=== PATIENT | male | born 1965 | race African-American/Black ===

== ENCOUNTER 2018-12-27 23:29 | Inpatient (IN) ==
[2018-12-27] MEDS ORDERED: MORPHINE 4 MG/1 ML VIAL IV STA (23:31)
[2018-12-27] MEDS ORDERED: ONDANSETRON 4 MG/2 ML VIAL IV STA (23:31)
[2018-12-27] MEDS ORDERED: LACTATED RINGERS 1,000 ML IV STA (23:31)
[2018-12-27] MEDS ORDERED: DIPH/TET/ACEL PERT BOOSTER VACCINE 0.5 ML VIAL IM ONE (23:31)
[2018-12-27 23:44] LABS: Basophils # 0.1 10*3/uL (0.0-0.2); Basophils % 0.6 % (0.0-0.8); Eosinophils # 0.1 10*3/uL (0.0-0.87); Eosinophils % 0.9 % (0.00-10.9); Hematocrit 50.5 VOL% (42.0-52.0); Hemoglobin 16.5 GM/DL (14.0-18.0); Immature Granulocytes % 0.7 %; Immature Granulocytes Absolute 0.11 #; Lymphocytes # 4.6 10*3/uL (1.4-4.0); Mean Corpuscular HGB Conc 32.7 GM/DL (32-36); Mean Corpuscular Volume 94.2 FL (87-102); Mean Platelet Volume 12.4 FL (9.6-12.0); Neutrophils % 58.8 % (38.7-73.9); Platelet Count 149 T/CUMM (130-400); Red Blood Count 5.36 MC/CUMM (3.8-5.5); Red Cell Distribution Width 11.9 % (9.3-17.3); White Blood Count 14.8 T/CUMM (4-12)
[2018-12-28 00:13] LABS: Alanine Aminotransferase 44 U/L (16-61); Albumin 3.8 G/DL (3.4-5.0); Alkaline Phosphatase 123 U/L (45-117); Amylase 58 U/L (25-115); Aspartate Amino Transferase 40 U/L (0-37); Blood Urea Nitrogen 12 MG/DL (7-18); Calcium 8.9 MG/DL (8.5-10.1); Glucose 177 MG/DL (74-106); Osmolality,Calculated 278.7 MOS/KG (273-304); Total Protein 7.7 G/DL (6.4-8.3)
[2018-12-28 04:09] LABS: Apearance,Urine CLEAR (Clear); Bilirubin,Urine Negative (Negative); Blood, Urine Negative (Negative); Glucose,Urine (UA) Negative (Negative); Ketones,Urine 5 mg/dL (Negative); Nitrite,Urine Negative (Negative); Protein,Urine Negative; RBC,Urine 3 /HPF (0-4); Urine Color Yellow (Yellow); Urine Specific Gravity 1.048 (1.001-1.035)
[2018-12-28 04:16] LABS: Barbiturates Screen,Urine Negative (Negative); Benzodiazepines Screen,Urine Negative (Negative); Cannabinoid Screen,Urine Negative (Negative); Opiate Screen,Urine Positive (Negative); Phencyclidine Screen,Urine Negative (Negative)
[2018-12-28] MEDS ORDERED: ONDANSETRON 4 MG/2 ML VIAL IV PRN (04:53)
[2018-12-28] MEDS ORDERED: ACETAMINOPHEN 325 MG TABLET PO PRN (04:53)
[2018-12-28] MEDS: SODIUM CHLORIDE 0.9% 1,000 ML IV SCH ×2 (05:23→18:32)
[2018-12-28] MEDS: HYDROmorphone 2 MG/1 ML VIAL IV PRN ×3 (05:23→16:29)
[2018-12-28] MEDS: PANTOPRAZOLE 40 MG TABLET PO SCH (07:50)
[2018-12-28] MEDS ORDERED: ALBUTEROL/IPRATROPIUM 3 ML NEB RESP TX PRN (09:05)
[2018-12-28] MEDS: ALBUTEROL/IPRATROPIUM 3 ML NEB RESP TX SCH ×2 (14:12→19:40)
[2018-12-29] MEDS: ALBUTEROL/IPRATROPIUM 3 ML NEB RESP TX SCH ×2 (00:42→06:48)
[2018-12-29 04:56] LABS: Basophils # 0.1 10*3/uL (0.0-0.2); Basophils % 0.5 % (0.0-0.8); Eosinophils # 0.1 10*3/uL (0.0-0.87); Eosinophils % 1.3 % (0.00-10.9); Hematocrit 46.9 VOL% (42.0-52.0); Hemoglobin 14.7 GM/DL (14.0-18.0); Immature Granulocytes % 0.4 %; Immature Granulocytes Absolute 0.04 #; Lymphocytes # 3.1 10*3/uL (1.4-4.0); Lymphocytes % 28.1 % (21.2-54.2); Mean Corpuscular HGB Conc 31.3 GM/DL (32-36); Mean Corpuscular Volume 97.5 FL (87-102); Mean Platelet Volume 12.2 FL (9.6-12.0); Monocytes % 8.3 % (1.7-12.7); Neutrophils % 61.4 % (38.7-73.9); Platelet Count 118 T/CUMM (130-400); Red Blood Count 4.81 MC/CUMM (3.8-5.5)
[2018-12-29 05:23] LABS: Albumin 3.3 G/DL (3.4-5.0); Bilirubin,Total 0.8 MG/DL (0.2-1.0); Calcium 8.3 MG/DL (8.5-10.1); Osmolality,Calculated 280.4 MOS/KG (273-304); Total Protein 6.6 G/DL (6.4-8.3)
[2018-12-29 05:32] LABS: Risk Ratio 8.86; Thyroid Stimulating Hormone 1.16 uIU/ml (0.358-3.74)
[2018-12-29] MEDS: PANTOPRAZOLE 40 MG TABLET PO SCH (08:58)
[2018-12-29] MEDS ORDERED: DEXTROSE 10% 25 GM/250 ML BAG IV PRN (09:34)
[2018-12-29] MEDS ORDERED: GLUCAGON 1 MG VIAL IM PRN (09:34)
[2018-12-29] MEDS ORDERED: metFORMIN 500 MG TABLET PO SCH (10:00)
[2018-12-29] MEDS: SODIUM CHLORIDE 0.9% 1,000 ML IV SCH (10:55)
[2018-12-29 10:59] VITALS: BP 133/58
== END 2018-12-29 11:53 | disposition home or self-care (01) | DRG 89 ==
LOC: N.ED 23:29 → N.EDINP 12-28 02:07 → N.3E 12-28 03:22
PROVIDERS: ADMIT Surgery; ATTEND Surgery